=== PATIENT | female | born 1955 | race Caucasian/White ===

== ENCOUNTER → 2021-08-13 00:05 | Outpatient (CLI) | payer MEDICARE, SELFPAY ==
[2021-08-13 14:50] LABS: SARS-CoV-2 RNA PCR Negative
== END ==
PROVIDERS: PCP Family Medicine; Visit Provider Internal Medicine Gastroenterology
DX: Z01.812 Encounter for preprocedural laboratory examination (principal); Z20.822 Contact with and (suspected) exposure to COVID-19
CPT/HCPCS: C9803; U0003; U0005

== ENCOUNTER 2021-08-16 01:18 | Day surgery (SDC) | payer MEDICARE, SELFPAY ==
[2021-08-03 12:08] VITALS: BMI 26.5
[2021-08-16 08:46] VITALS: BP 149/72; PULSE 65; RESP 18; TEMP 36; O2SAT 100; BMI 26.4
[2021-08-16] MEDS: LACTATED RINGERS 1,000 ML 150 ML IV CONT (08:57)
--- NOTE | 2021-08-16 09:29 | WPDGICN ---
Assessment and Plan Assessment and plan (1) Heme positive stool: Code(s): R19.5 - Other fecal abnormalities Status: Acute Assessment and Plan: Patient with Hemoccult-positive stools. Plan is for surveillance colonoscopy. Further recommendations will be given after colonoscopy GI Consult Note Consult date/time: 08/16/21 09:29 HPI: Mami Hutson is a 66 year old female Presents for screening colonoscopy. Patient recently found to have occult blood in stool on several stool Hemoccult samples. She denies any obvious blood in her stools. Patient does have a history of colon polyps in the distant past. Most recent colonoscopy 4-5 years ago. She denies abdominal pain. She has had no family history of colon or rectal disease she presents today for neoplasia screening. [facility] Past Medical History Medical History Elevated lipids Hernia History of vaginal delivery x 2 Hypertension Stroke Surgical History Surgical History H/O colonoscopy 2017 H/O hernia repair History of breast biopsy History of tubal ligation Family History Family History Father Family history of diabetes mellitus in first degree relative Family history of coronary artery disease Family history of hypercholesterolemia Hypertension Cerebrovascular accident Mother Thyroid disorder Sibling Lymph node cancer Other Family history of malignant neoplasm of cervix Social History Social History Smoking packs per day: 1 Smoking cigarettes per day: 20.0 Years smoked: 50 Smoking pack-years: 50.00 Smoking status: Current every day smoker Tobacco type: cigarettes Second hand tobacco smoke exposure: No Alcohol intake: current Drinks per week: 14 Substance use: never Living arrangements: with family Spiritual care concerns: No Agree to blood products: Yes Meds Home Medications and Allergies Home Medications Medication Instructions Recorded Confirmed Type aspirin 81 mg tablet,delayed 162 mg PO DAILY tablet 06/27/21 08/03/21 History release nebivolol 10 mg tablet 10 mg PO DAILY #90 tablet 06/27/21 08/03/21 Rx simvastatin 40 mg tablet 40 mg PO DAILY #90 tablet 06/27/21 08/03/21 Rx triamterene 75 1 tablet PO DAILY 90 Days #90 06/27/21 08/03/21 Rx mg-hydrochlorothiazide 50 mg tablet tablet omeprazole 20 mg capsule,delayed 20 mg PO DAILY #90 cap 07/25/21 08/03/21 Rx release cholecalciferol (vitamin D3) 250 mcg PO DAILY 08/03/21 08/03/21 History [Vitamin D3] Allergies Allergy/AdvReac Type Severity Reaction Status Date / Time No Known Allergies Allergy Verified 08/16/21 08:45 Vital Signs Vital Signs - 24 hr 08/16/21 08:46 Temperature 96.8 F L Pulse Rate 65 Respiratory Rate 18 Blood Pressure 149/72 H Pulse Oximetry 100 Exam Narrative: Physical exam reveals patient to be alert. Vital signs stable. HEENT exam is unremarkable. Patient is anicteric. Lungs are clear to auscultation and percussion. Heart is without murmur or extra sounds. Abdominal exam bowel sounds present soft nontender with no organomegaly. Digital external rectal exam is normal.
--- NOTE | 2021-08-16 09:55 | WPDANESEPPF ---
Anes - Initial Pre Proc Eval Procedure: Operation Date: 08/16/21 10:00 Proposed Procedures p Colonoscopy - Los Poretr MD Date/Time: 08/16/21 09:55 Surgeon: Los Porter MD Pre Op Diagnosis: occult GI bled Patient Data Age: 66 Gender: F Height: 1.6 m Weight: 67.7 kg Last Vital Signs Temp 96.8 F L 08/16/21 08:46 Pulse 65 08/16/21 08:46 Resp 18 08/16/21 08:46 BP 149/72 H 08/16/21 08:46 Pulse Ox 100 08/16/21 08:46 Allergies Allergy/AdvReac Type Severity Reaction Status Date / Time No Known Allergies Allergy Verified 08/16/21 08:45 Home Medications Medication Instructions Recorded Confirmed Type aspirin 81 mg tablet,delayed 162 mg PO DAILY tablet 06/27/21 08/03/21 History release nebivolol 10 mg tablet 10 mg PO DAILY #90 tablet 06/27/21 08/03/21 Rx simvastatin 40 mg tablet 40 mg PO DAILY #90 tablet 06/27/21 08/03/21 Rx triamterene 75 1 tablet PO DAILY 90 Days #90 06/27/21 08/03/21 Rx mg-hydrochlorothiazide 50 mg tablet tablet omeprazole 20 mg capsule,delayed 20 mg PO DAILY #90 cap 07/25/21 08/03/21 Rx release cholecalciferol (vitamin D3) 250 mcg PO DAILY 08/03/21 08/03/21 History [Vitamin D3] Patient hx anesthesia problems: none Family hx anesthesia problems: none Results Review: All pre-operative results and documents have been reviewed as part of the pre-operative evaluation. [facility] Past Medical History Medical History Elevated lipids Hernia History of vaginal delivery x 2 Hypertension Stroke Surgical History Surgical History H/O colonoscopy 2017 H/O hernia repair History of breast biopsy History of tubal ligation Family History Family History Father Family history of diabetes mellitus in first degree relative Family history of coronary artery disease Family history of hypercholesterolemia Hypertension Cerebrovascular accident Mother Thyroid disorder Sibling Lymph node cancer Other Family history of malignant neoplasm of cervix Social History Social History Smoking packs per day: 1 Smoking cigarettes per day: 20.0 Years smoked: 50 Smoking pack-years: 50.00 Smoking status: Current every day smoker Tobacco type: cigarettes Second hand tobacco smoke exposure: No Alcohol intake: current Drinks per week: 14 Substance use: never Living arrangements: with family Spiritual care concerns: No Agree to blood products: Yes Anes - Eval Final PreProcedure Day of Procedure 08/16/21 09:55 Patient weight: normal Heart: regular rate and rhythm Lungs: clear to auscultation Airway: Mallampati scale class II Neurological: alert and oriented Last oral intake: >/= 8 hours ASA classification: III Emergent: no Anesthetic plan: proceed Anesthesia type and monitoring: general GIVS and standard monitoring Results Review: All pre-operative results and documents have been reviewed as part of the pre-operative evaluation. Informed Consent: The patient's anesthetic plan and its attendant risks and benefits were discussed with the patient/family/POA. Questions were solicited and answers provided to the satisfaction of the patient/family/POA.
[2021-08-16 10:41] VITALS: BP 126/67; PULSE 63; RESP 22; O2SAT 100
[2021-08-16 10:51] VITALS: BP 125/56; PULSE 65; RESP 15; O2SAT 100
[2021-08-16 11:01] VITALS: BP 133/50; PULSE 67; RESP 18; O2SAT 100
== END 2021-08-16 11:07 | disposition home or self-care (01) ==
PROVIDERS: PCP Family Medicine; Visit Provider Internal Medicine Gastroenterology
PROC: 0DJD8ZZ Inspection of Lower Intestinal Tract, Via Natural or Artificial Opening Endoscopic (ICD-10-PCS; CPT 45378; principal; 2021-08-16 10:00)
DX: R19.5 Other fecal abnormalities (principal); K63.5 Polyp of colon; K64.8 Other hemorrhoids; K57.30 Diverticulosis of large intestine without perforation or abscess without bleeding; I10 Essential (primary) hypertension; E78.5 Hyperlipidemia, unspecified; Z86.73 Personal history of transient ischemic attack (TIA), and cerebral infarction without residual deficits; F17.210 Nicotine dependence, cigarettes, uncomplicated; Z79.82 Long term (current) use of aspirin
CPT/HCPCS: 45385; 88305; J2704; J7120

== ENCOUNTER 2021-08-24 10:53 | Outpatient (CLI) | payer MEDICARE, SELFPAY ==
--- NOTE | ~2021-08-24 | US_ITS ---
EXAMINATION: US carotid duplex BI DATE: 08/24/2021 12:04 INDICATION: Left parietal lobe moreno radiata infarct. Left arm and hand numbness. TECHNIQUE: Grayscale, color Doppler, and pulsed Doppler images of the cervical carotid arteries were obtained. The degree of vessel stenosis is placed in one of the following categories: normal, <50%, 5 0-69%, >=70% but less than near-occlusion, near-occlusion, or total occlusion. Note that percent sten osis relative to normal distal artery lumen diameter is indirectly measured from velocity measurement s as described by Vinicio, et al. Radiology 2003; 229:340-346. COMPARISON: Brain MRI 11/25/2011 FINDINGS: RIGHT: The right common carotid artery (CCA) peak systolic velocity (PSV) is 73 cm/s. The right internal car otid artery (ICA) PSV is 88 cm/s. The right ICA end-diastolic velocity (EDV) is 32 cm/s. The right IC A/CCA PSV ratio is 1.2. Grayscale and color Doppler images yield an estimate of <50% diameter reducti on from plaque in the ICA. There is antegrade flow in the right vertebral artery. LEFT: The left CCA PSV is 87 cm/s. The left ICA PSV is 124 cm/s. The left ICA EDV is 24 cm/s. The left ICA/ CCA PSV ratio is 1.4. Grayscale and color Doppler images yield an estimate of <50% diameter reduction from plaque in the ICA. There is antegrade flow in the left vertebral artery. IMPRESSION: 1. <50% stenosis in the right internal carotid artery. 2. <50% stenosis in the left internal carotid artery. Reviewed, dictated and finalized at location B.
--- NOTE | ~2021-08-24 | XR_ITS ---
EXAMINATION:[id number] DATE: 08/24/2021 11:21 INDICATION: Left hand numbness TECHNIQUE: AP, lateral, lateral swimmers and odontoid views of the cervical spine are provided. COMPARISON: None FINDINGS: There are 2 mm of retrolisthesis of C5 on C6. There is 1 mm of anterolisthesis of C3 on C4. The odontoid is intact. No fracture is identified. The vertebral body heights are maintained. There is severe loss of intervertebral disc space height at C4-5 through C7-T1. There is moderate multileve l facet and uncovertebral joint osteoarthritis. Prevertebral soft tissues are normal. IMPRESSION: 1. Moderate to severe cervical spondylosis without acute findings. Reviewed, dictated and finalized at location A.
== END 2021-08-24 10:54 | disposition home or self-care (01) ==
PROVIDERS: PCP Family Medicine; Visit Provider Family Medicine
DX: R20.0 Anesthesia of skin (principal); M47.892 Other spondylosis, cervical region; I65.23 Occlusion and stenosis of bilateral carotid arteries
CPT/HCPCS: 72040; 93880

== ENCOUNTER 2021-09-05 12:33 | Outpatient (CLI) | payer MEDICARE, SELFPAY ==
--- NOTE | 2021-09-05 12:53 | ECHO_ITS ---
Patient Info Name: Mami Hutson Age: 66 years : 1955 Gender: Female Ht: 63 in Wt: 150 lbs BSA: 1.76 m2 HR: 54 bpm BP: 170 / 85 mmHg Technical Quality: Good Exam Date: 09/05/2021 1:24 PM Exam Location: [facility] Patient Status: Outpatient Admit Date: 09/05/2021 Staff Ordering Physician: Angie Adam DO Masonry Contractor: Laura Jernigan RDCS Attending Provider: Angie Adam DO Referring Physician: Jair MATTHEWS; Exam Type: CA echo doppler color flow Study Info Indications - LEFT HAND NUMBNESS Complete two-dimensional, color flow and Doppler transthoracic echocardiogram is performed. Summary 1. Complete two-dimensional, color flow and Doppler transthoracic echocardiogram is performed. 2. Left ventricular chamber dimension is normal. 3. Left ventricular systolic function is normal, estimated at 60-65%. 4. The left ventricular diastolic function is grade I diastolic dysfunction. 5. E/e' 8 is minimally elevated. 6. Left atrial chamber dimension is mildly enlarged. 7. There is trace mitral valve regurgitation. 8. There is mild tricuspid valve regurgitation. 9. No pulmonary hypertension, estimated pulmonary arterial systolic pressure is 31 mmHg. Left Ventricle E/e' 8 is minimally elevated. Left ventricular chamber dimension is normal. Left ventricular systolic function is normal, estimated at 60-65%. The left ventricular diastolic function is grade I diastolic dysfunction. Right Ventricle Right ventricular chamber dimension is normal. Right ventricular systolic function is normal. Left Atria Left atrial chamber dimension is mildly enlarged. Right Atria Right atrial chamber dimension is normal. Aortic Valve The aortic valve is trileaflet. There is no aortic valve stenosis. There is no aortic valve regurgitation. Pulmonic Valve There is no pulmonic regurgitation. Mitral Valve There is no mitral valve stenosis. There is trace mitral valve regurgitation. Tricuspid Valve There is mild tricuspid valve regurgitation. No pulmonary hypertension, estimated pulmonary arterial systolic pressure is 31 mmHg. Pericardium/Pleural There is no pericardial effusion. Inferior Vena Cava Normal inferior vena cava with >50% collapse upon inspiration consistent with normal right atrial pressure, 5 mmHg. Aorta The aortic root size at the sinus of Valsalva is normal. Left Ventricular Outflow Tract Name Value Normal LVOT 2D LVOT Diameter 2.0 cm LVOT Doppler LVOT Peak Gradient 4 mmHg LVOT Mean Gradient 2 mmHg LVOT VTI 25 cm LVOT VTI/AV VTI Ratio 0.8 LVOT Stroke Volume 77 ml LVOT CO 12.4 l/min LVOT CI 7.1 l/min/m2 Pulmonic Valve Name Value Normal PV Doppler
== END 2021-09-05 12:34 | disposition home or self-care (01) ==
PROVIDERS: PCP Family Medicine; Visit Provider Family Medicine
DX: I11.9 Hypertensive heart disease without heart failure (principal); I50.22 Chronic systolic (congestive) heart failure; I36.1 Nonrheumatic tricuspid (valve) insufficiency
CPT/HCPCS: 93306

== ENCOUNTER → 2021-09-07 13:07 | Outpatient (CLI) | payer MEDICARE, SELFPAY ==
--- NOTE | ~2021-09-07 | MR_ITS ---
EXAMINATION: MR brain/brain stem wo con DATE: 09/07/2021 13:42 INDICATION: Transient cerebral ischemic attack, unspecified. Left-sided numbness. Speech deficit. TECHNIQUE: Magnetic resonance imaging (MRI) of the brain and brainstem was performed without intraven ous contrast. COMPARISON: Brain MRI 11/25/2011 FINDINGS: There is an acute infarct in the inferolateral right frontal lobe. There are punctate acute infarcts in posterior right frontal lobe. There is no intracranial hemorrhage or abnormal mass lesio n. There are scattered areas of nonspecific increased T2-weighted signal intensity in the cerebral wh ite matter. The ventricles are normal in size. There are likely changes of ocular lens replacement vazquez rgeries. There are trace mastoid effusions. IMPRESSION: 1. Acute infarcts in right frontal lobe. 2. Mild nonspecific cerebral white matter disease, which likely represents chronic small vessel ische rom disease. Reviewed, dictated and finalized at location B. IMPRESSION: 1. Acute infarcts in right frontal lobe. 2. Mild nonspecific cerebral white matter disease, which likely represents chronic care nurse jennie small vessel ischemic disease.
== END ==
PROVIDERS: PCP Family Medicine; Visit Provider Family Medicine
DX: G45.9 Transient cerebral ischemic attack, unspecified (principal); R20.0 Anesthesia of skin; R93.0 Abnormal findings on diagnostic imaging of skull and head, not elsewhere classified
CPT/HCPCS: 70551

== ENCOUNTER 2021-09-07 14:01 | Outpatient (CLI) | payer MEDICARE, SELFPAY ==
--- NOTE | 2021-09-09 12:53 | WPDHOLTEREM ---
Holter/Event Monitor Holter/Event Monitor Date of procedure: 09/07/21 Holter/Event Procedure: 24 Hr Holter Monitor Indications: TIA Conclusion: 1. 24 hour holter monitor on 09/07/21. 2. Underlying rhythm in sinus rhythm. HR range 48-92 bpm; average HR 61 bpm. 3. There are 45 premature supraventricular complexes, 4 supraventricular couplets and 1 supraventricular triplet. No supraventricular tachycardia. 4. There are 165 premature ventricular complexes and 13 ventricular bigeminy. No ventricular tachycardia. 5. No sinoatrial or atrioventricular blocks. No significant pauses greater than 2 seconds. 6. Patient reports symptoms of hand and face numbness which demonstrates sinus rhythm at 76 bpm.
== END 2021-09-07 14:02 | disposition home or self-care (01) ==
PROVIDERS: PCP Family Medicine; Visit Provider Family Medicine
DX: G45.9 Transient cerebral ischemic attack, unspecified (principal); R00.2 Palpitations
CPT/HCPCS: 93225; 93226

== ENCOUNTER 2022-06-22 11:12 | Outpatient (CLI) | payer MEDICARE, SELFPAY ==
--- NOTE | ~2022-06-22 | MR_ITS ---
EXAMINATION: MR brain/brain stem wo/w con DATE: 06/22/2022 12:35 INDICATION: Stroke. TECHNIQUE: Magnetic resonance imaging (MRI) of the brain and brainstem was performed without and with 14 mL MultiHance intravenous contrast. COMPARISON: Brain MRI 09/07/2021 FINDINGS: There is a punctate acute infarct in the right frontal lobe. There are old infarcts in the right frontal lobe. There are scattered areas of nonspecific increased T2-weighted signal intensity i n the cerebral white matter. There is no intracranial hemorrhage or abnormal mass lesion. The ventric les are normal in size. There are small bilateral mastoid effusions. There is mild mucosal thickening in the ethmoid sinuses. There are likely changes of ocular lens replacement surgeries. IMPRESSION: 1. Punctate acute infarct in the right frontal lobe. 2. 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 3. Worsened mild nonspecific cerebral white matter disease, which likely represents chronic small ves elton ischemic disease. Reviewed, dictated and finalized at location A. ON TRADER IMPRESSION: 1. Punctate acute infarct in the right frontal lobe. 2. 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 3. Worsened mild nonspecific cerebral white matter disease, which likely repres ents chronic small vessel ischemic disease.
== END 2022-06-22 11:13 | disposition home or self-care (01) ==
PROVIDERS: PCP Family Medicine; Visit Provider Family Medicine
DX: I63.9 Cerebral infarction, unspecified (principal); R93.0 Abnormal findings on diagnostic imaging of skull and head, not elsewhere classified
CPT/HCPCS: 70553; A9577

== ENCOUNTER 2022-06-22 15:36 | Inpatient (IN) | payer MEDICARE, SELFPAY ==
[2022-06-22] VITALS (25 sets, daily range): BP systolic 122–158; BP diastolic 52–81; PULSE 56–72; RESP 12–28; TEMP 36.4–36.8; O2SAT 93–100; BMI 28.2
--- NOTE | ~2022-06-22 | CT_ITS ---
EXAMINATION: CTA brain carotid DATE: 06/22/2022 20:12 INDICATION: Facial numbness and slurred speech TECHNIQUE: Computed tomographic angiography (CTA) of the head was performed without and with 100 mL O mnipaque-350 intravenous contrast. CTA of the neck was performed with intravenous contrast. The dose- length product was 1688.04 mGy-cm. Maximum intensity projection and volume rendered 3D-reconstruction s were created by the technologist on a separate workstation. Automated exposure control and iterativ e reconstruction technique were employed. COMPARISON: MRI from today FINDINGS: HEAD CTA: There is no intracranial hemorrhage, acute infarction, or abnormal mass lesion. The punctat e right frontal lobe infarct described on today's MRI is not definitely identified (CT less sensitive than MRI for acute infarct). The ventricles are normal. There is no abnormal mass effect or midline shift. The cid-white matter differentiation is normal. The basal cisterns are patent. The orbits are normal. The paranasal sinuses, mastoids and calvarium are normal. There is no significant stenosis of the basilar artery or posterior cerebral arteries. There is no si gnificant stenosis of the anterior or middle cerebral arteries. There is severe stenosis of the right intracranial internal carotid artery. The anterior communicating artery and posterior communicating arteries are normal. There is no aneurysm. NECK CTA: The thyroid gland is unremarkable. The submandibular and parotid glands are symmetric. Ther e is no lymphadenopathy. There are no masses identified. The airway is unremarkable. There is moderat e to severe cervical spondylosis. Moderate emphysema is noted. The superior mediastinum is unremarkab le. There is 0% stenosis of the proximal right internal carotid artery relative to normal distal artery l umen diameter (NASCET criteria). There is 46% stenosis of the proximal left internal carotid artery r elative to normal distal artery lumen diameter. IMPRESSION: 1. Severe stenosis of the intracranial right internal carotid artery. 2. 0% stenosis of the proximal right internal carotid artery relative to normal distal artery lumen d iameter (NASCET criteria). 3. 46% stenosis of the proximal left internal carotid artery relative to normal distal artery lumen d iameter. Reviewed, dictated and finalized at location F. ING CONSULTANT IMPRESSION: 1. Severe stenosis of the intracranial right internal carotid artery. 2. 0% stenosis of the proximal right internal carotid artery relative to normal distal artery lumen diameter (NASCET criteria). 3. 46% stenosis of the proximal left internal carotid artery relative to normal distal artery lumen diameter.
--- NOTE | 2022-06-22 16:13 | ECG_ITS ---
Measurements Intervals [place] Rate: 65 P: 47 ME: 137 QRS: 33 QRSD: 86 T: 61 QT: 411 QTc: 429 Interpretive Statements SINUS RHYTHM BASELINE ARTIFACT- I, II, III, AVR, AVF, V4-V6 NORMAL ECG NO PREVIOUS ECG AVAILABLE FOR COMPARISON Electronically Signed On 06-23-2022 16:47:28 ROOFER APPRENTICE by Jack Smith D.O.
[2022-06-22 16:34] LABS: Basophils Absolute Auto 0.1 K/mm3 (0.0-0.1); Basophils Percent Auto 0.5 % (0.2-1.2); Eosinophils Absolute Auto 0.1 K/mm3 (0-0.3); Eosinophils Percent Auto 0.9 % (0-4.4); Hematocrit 40.5 % (37.0-47.0); Hemoglobin 13.5 g/dL (12.0-15.0); Immature Granulocyte Absolute 0.05 K/mm3 (0.00-0.031); Immature Granulocyte Percent A 0.4 % (0-0.5); Lymphocytes Absolute Auto 3.29 K/mm3 (0.9-3.2); Lymphocytes Percent Auto 25.5 % (18.3-44.2); Mean Corpuscular HGB Conc 33.3 g/dl (32-36); Mean Corpuscular Volume 92.9 fl (80-100); Mean Platelet Volume 9.3 fl (7.4-10.4); Monocytes Absolute Auto 0.9 K/mm3 (0.1-0.6); Monocytes Percent Auto 7.3 % (2.6-8.5); Neutrophils Absolute Auto 8.4 K/mm3 (1.3-6.7); Neutrophils Percent Auto 65.4 % (45.5-73.1); Platelet Count Result 374 k/mm3 (150-375); Red Blood Count 4.36 M/mm3 (4.2-5.4); Red Cell Distribution Width 13.2 % (11.5-14.5); White Blood Count 12.9 K/mm3 (4.5-10.0)
[2022-06-22 16:49] LABS: Alanine Aminotransferase 23 U/L (6-35); Albumin Level 4.8 g/dL (3.5-5.1); Alkaline Phosphatase 105 U/L (38-126); Anion Gap 11 mmol/L (8-16); Aspartate Amino Transferase 27 U/L (14-36); Bilirubin,Total 0.8 mg/dL (0.2-1.3); Blood Urea Nitrogen 21 mg/dL (7-17); Calcium 9.5 mg/dL (8.4-10.2); Carbon Dioxide 25 mmol/L (22-30); Chloride 99 mmol/L (98-107); Estimated CRCL calculation 46 ml/min; Estimated Glomerular Filt Rate 55; Glucose 105 mg/dL (65-110); Potassium 4.3 mmol/L (3.4-5.0); Sodium 135 mmol/L (137-145)
--- NOTE | 2022-06-22 17:45 | PC.NURSE ---
Patient reports that yesterday evening around 1800 she had an episode of left sided facial droop, slurred speech and left arm flaccid that lasted approx 10-20 minutes. She reports prior hx of TIAs but reports that symptoms are increasing in frequency over the past several weeks.
--- NOTE | 2022-06-22 19:08 | ED.NEUROSD ---
HPI - Neuro Symptoms/Deficit General Chief Complaint: Neuro Symptoms/Deficit Stated Complaint: MRI showed stroke Time Seen by Provider: 06/22/22 18:45 Source: patient and family Mode of arrival: ambulatory Limitations: no limitations History of Present Illness HPI Narrative: Patient is a 67 yo female with a history of TIA, HTN, HLD, acid reflux, presenting to the ER for evaluation of left arm numbness that started yesterday around 6 pm. Patient reports symptoms lasted for 20 minutes and then resolved. Pt denies associated facial droop, difficulty with speech or swallowing, headache pain or vision changes. No fall or syncope. Patient states she has had these intermittently for the past year and was initiated on two baby aspirin and plavix daily. Patient has seen Dr. Moreno in the past. This morning, patient went to her primary care physician and did tell him the symptoms she was experiencing so he ordered a stat brain MRI. He then called her this afternoon and told her to come the to the emergency department. Patient states that she does not know the results of the MRI. She denies any current numbness or weakness. No difficulty with ambulation. Related Data Home Medications Medication Instructions Recorded Confirmed aspirin 81 mg tablet,delayed 162 mg PO DAILY 06/27/21 12/20/21 release (Adult Aspirin Regimen) omeprazole 20 mg capsule,delayed 20 mg PO DAILY 12/20/21 12/20/21 release Allergies Allergy/AdvReac Type Severity Reaction Status Date / Time No Known Allergies Allergy Verified 06/22/22 09:56 Review of Systems Review of Systems: CONSTITUTIONAL: Denies fever, chills, or sweats. EYES: Denies visual changes, redness, or discharge. ENT: Denies rhinorrhea, congestion, sore throat, or otalgia. CARDIOVASCULAR: Denies chest pain, palpitations, or edema. RESPIRATORY: Denies cough or dyspnea. GASTROINTESTINAL: Denies abdominal pain, nausea, vomiting, or diarrhea. GENITOURINARY: Denies dysuria or hematuria. SKIN: Denies rash or itching. MUSCULOSKELETAL: Denies back pain, joint pain, or myalgia. NEUROLOGIC: Denies headache, numbness, or weakness. [facility] Past Medical History Medical History Elevated lipids Hernia History of vaginal delivery x 2 Hypertension Stroke TIA (transient ischemic attack) Surgical History Surgical History H/O cataract removal with insertion of prosthetic lens H/O colonoscopy 2017, 08/16/2021-rpt 5 years H/O hernia repair History of breast biopsy History of tubal ligation Family History Family History Father Family history of diabetes mellitus in first degree relative Family history of coronary artery disease Family history of hypercholesterolemia Hypertension Cerebrovascular accident Mother Thyroid disorder Sibling Lymph node cancer Other Family history of malignant neoplasm of cervix Social History Social History Smoking packs per day: 1 Smoking cigarettes per day: 20.0 Years smoked: 50 Smoking pack-years: 50.00 Smoking status: Current every day smoker Tobacco type: cigarettes Second hand tobacco smoke exposure: No Alcohol intake: current Drinks per week: 14 Substance use: never Lack of Transportation: No Lack of Food: Never True Current Housing: I Have Housing Concerned About Future Housing: No Difficulty Paying Gas/Electric Bills: No Difficulty Paying for Meds: No Currently Unemployed: No Education: High School Diploma/GED Difficulty w/ Childcare or Family Care: No Living arrangements: with family Occupation/Education: retired Spiritual care concerns: No Agree to blood products: Yes Exam Narrative: GENERAL: Awake, alert, conversant HEAD: Normocephalic, atraumatic. EYES: PERRLA and EOMI. E
--- NOTE | 2022-06-22 20:00 | PC.NURSE ---
Patient off unit to CT.
[2022-06-22 20:11] LABS: Cholesterol 189 mg/dL (0-200); HDL Direct 66 mg/dL; Triglycerides 135 mg/dL (<150)
[2022-06-22 20:21] LABS: Hemoglobin A1C 5.7 % (<5.7)
[2022-06-22 20:22] LABS: LDL Cholesterol Direct 74 mg/dL
--- NOTE | 2022-06-22 21:04 | PM.IMHP ---
H&P: HPI History of Present Illness Date/Time: 06/22/22 21:04 Chief Complaint: 57 years old female with past medical history of TIA hyperlipidemia hypertension presented to the hospital with numbness on the left side upper lower extremity started yesterday at 6:00 p.m. denies any weakness lasted for 20 minutes significantly improved patient was on aspirin and Plavix at the ER CT scan of the head was done MRI of the brain was done shows acute punctate stroke of left frontal lobe neurology recommended CTA eco continue aspirin Plavix statin admitted to the hospital for further evaluation and treatment permissive hypertension Review of Systems Review of Systems: Twelve system review was done negative except [facility] Past Medical History Medical History Elevated lipids Hernia History of vaginal delivery x 2 Hypertension Stroke TIA (transient ischemic attack) Surgical History Surgical History H/O cataract removal with insertion of prosthetic lens H/O colonoscopy 2017, 08/16/2021-rpt 5 years H/O hernia repair History of breast biopsy History of tubal ligation Family History Family History Father Family history of diabetes mellitus in first degree relative Family history of coronary artery disease Family history of hypercholesterolemia Hypertension Cerebrovascular accident Mother Thyroid disorder Sibling Lymph node cancer Other Family history of malignant neoplasm of cervix Social History Social History Smoking packs per day: 1 Smoking cigarettes per day: 20.0 Years smoked: 50 Smoking pack-years: 50.00 Smoking status: Current every day smoker Tobacco type: cigarettes Second hand tobacco smoke exposure: No Alcohol intake: current Drinks per week: 14 Substance use: never Lack of Transportation: No Lack of Food: Never True Current Housing: I Have Housing Concerned About Future Housing: No Difficulty Paying Gas/Electric Bills: No Difficulty Paying for Meds: No Currently Unemployed: No Education: High School Diploma/GED Difficulty w/ Childcare or Family Care: No Living arrangements: with family Occupation/Education: retired Spiritual care concerns: No Agree to blood products: Yes Meds Home Medications and Allergies Home Medications Medication Instructions Recorded Confirmed Type aspirin 81 mg tablet,delayed 162 mg PO DAILY 06/27/21 12/20/21 History release (Adult Aspirin Regimen) clopidogrel 75 mg tablet (Plavix) 75 mg PO DAILY #90 tabs 09/07/21 12/20/21 Rx omeprazole 20 mg capsule,delayed 20 mg PO DAILY 12/20/21 12/20/21 History release atorvastatin 40 mg tablet (Lipitor) 40 mg PO DAILY #90 tabs 03/17/22 Rx pantoprazole 40 mg tablet,delayed 40 mg PO QAM #90 tabs 03/30/22 Rx release lisinopril 10 mg tablet See Rx Instructions .Route 04/05/22 Rx .COMPLEX #90 tabs nebivolol 10 mg tablet See Rx Instructions .Route 06/02/22 Rx .COMPLEX #90 tabs triamterene 75 0.5 tablet PO DAILY #90 tabs 06/02/22 Rx mg-hydrochlorothiazide 50 mg tablet Allergies Allergy/AdvReac Type Severity Reaction Status Date / Time No Known Allergies Allergy Verified 06/22/22 09:56 Vital Signs Vital Signs - 24 hr 06/22/22 16:06 06/22/22 17:50 06/22/22 17:51 Temperature 98.2 F Pulse Rate 71 63 59 L Respiratory Rate 16 19 16 Blood Pressure 145/67 H 145/57 H Pulse Oximetry 100 Oxygen Delivery Room Air 06/22/22 18:09 06/22/22 18:15 06/22/22 18:31 Temperature Pulse Rate 57 L 59 L 56 L Respiratory Rate 15 17 17 Blood Pressure 122/59 L Pulse Oximetry Oxygen Delivery 06/22/22 18:32 06/22/22 18:45 06/22/22 18:46 Temperature Pulse Rate 56 L 56 L 57 L Respiratory Rate 15 18 28 H Blood Pressure
--- NOTE | 2022-06-22 21:48 | ADMGEN ---
This patient, Mami Hutson, was admitted to 3 [facility] Surg Room 307-02. Patient/family oriented to hospital policies and general routines including ID bracelet, bed and alarms, visiting hours, pain management, procedures, bathroom and other care routines, personal items, smoking policy, room service/diet, and visiting hours. Information on how to activate the Rapid Response Team has been discussed. Patient/Family are encouraged to report perceived risks to care and to ask questions if they do not understand what they are told or what they should do.
[2022-06-22 21:53] LABS: Troponin I < 0.012 ng/mL (0.000-0.034)
[2022-06-22 22:19] LABS: Cholesterol 182 mg/dL (0-200); HDL Direct 64 mg/dL; Triglycerides 138 mg/dL (<150)
[2022-06-22] MEDS: SODIUM CHLORIDE 0.9% IV 1,000 ML 100 ML IV CONT (22:23)
[2022-06-22 22:30] LABS: LDL Cholesterol Direct 73 mg/dL
[2022-06-23] VITALS: PULSE 53
--- NOTE | 2022-06-23 | ECHO_ITS ---
Patient Info Name: Mami Hutson Age: 67 years : 1955 Gender: Female Ht: 63 in Wt: 159 lbs BSA: 1.81 m2 HR: 68 bpm BP: 111 / 95 mmHg Technical Quality: Good Exam Date: 06/23/2022 11:25 AM Exam Location: [facility] Pulmonary Exam Room: [facility] Patient Status: Inpatient Admit Date: 06/23/2022 Staff Ordering Physician: Benji Chappell Bioinformatics Programmer: Laura Jernigan RDCS Attending Provider: Ulises Duarte M.A., MD Referring Physician: Ta GONZÁLES; Exam Type: CA echo doppler w bubble study Study Info Indications - NEW ACUTE STROKE Complete two-dimensional, color flow and Doppler transthoracic echocardiogram is performed with agitated saline. Contrast/Agitated Saline Contrast/Ag. Saline: Agitated Saline Amount: 20.00 ml Existing IV Access: Yes Summary 1. Left ventricular chamber dimension is normal. 2. Left ventricular systolic function is normal, estimated at 60-65%. 3. The left ventricular diastolic function is grade II diastolic dysfunction. 4. E/e' 9 is minimally elevated. 5. There is mild mitral valve regurgitation. 6. There is mild tricuspid valve regurgitation. 7. No pulmonary hypertension, estimated pulmonary arterial systolic pressure is 33 mmHg. Left Ventricle E/e' 9 is minimally elevated. Left ventricular chamber dimension is normal. Left ventricular systolic function is normal, estimated at 60-65%. The left ventricular diastolic function is grade II diastolic dysfunction. Right Ventricle Right ventricular chamber dimension is normal. Right ventricular systolic function is normal. Left Atria Left atrial chamber dimension is normal. Right Atria Right atrial chamber dimension is normal. Atrial Septum Agitated saline injection with and without valsalva maneuver opacified right side cardiac chambers without shunt to left side cardiac chambers. Intact interatrial septum visualized by 2D and agitated saline imaging. Aortic Valve The aortic valve is trileaflet. There is no aortic valve stenosis. There is no aortic valve regurgitation. Pulmonic Valve There is no pulmonic regurgitation. Mitral Valve There is no mitral valve stenosis. There is mild mitral valve regurgitation. Tricuspid Valve There is mild tricuspid valve regurgitation. No pulmonary hypertension, estimated pulmonary arterial systolic pressure is 33 mmHg. Pericardium/Pleural There is no pericardial effusion. Inferior Vena Cava Normal inferior vena cava with >50% collapse upon inspiration consistent with normal right atrial pressure, 5 mmHg. Aorta The aortic root size at the sinus of Valsalva is normal. Left Ventricular Outflow Tract Name Value Normal LVOT 2D LVOT Diameter 2.0 cm LVOT Doppler LVOT Peak Gradient 4 mmHg LVOT Mean Gradient 2 mmHg LVOT VTI 22 cm LVOT VTI/AV VTI Ratio 0.8 LVOT Stroke Volume 66 ml LVOT CO 11.7 l/min LVO
[2022-06-23 04:00] VITALS: PULSE 54
[2022-06-23 06:00] VITALS: BP 111/95; PULSE 59; RESP 14; TEMP 36.1; O2SAT 96
[2022-06-23 06:25] LABS: Basophils Absolute Auto 0.1 K/mm3 (0.0-0.1); Basophils Percent Auto 0.7 % (0.2-1.2); Eosinophils Absolute Auto 0.2 K/mm3 (0-0.3); Eosinophils Percent Auto 2.5 % (0-4.4); Hematocrit 38.6 % (37.0-47.0); Hemoglobin 12.5 g/dL (12.0-15.0); Immature Granulocyte Absolute 0.03 K/mm3 (0.00-0.031); Immature Granulocyte Percent A 0.3 % (0-0.5); Lymphocytes Absolute Auto 2.85 K/mm3 (0.9-3.2); Lymphocytes Percent Auto 32.1 % (18.3-44.2); Mean Corpuscular HGB Conc 32.4 g/dl (32-36); Mean Corpuscular Volume 92.8 fl (80-100); Mean Platelet Volume 9.3 fl (7.4-10.4); Monocytes Absolute Auto 0.9 K/mm3 (0.1-0.6); Monocytes Percent Auto 9.6 % (2.6-8.5); Neutrophils Absolute Auto 4.9 K/mm3 (1.3-6.7); Neutrophils Percent Auto 54.8 % (45.5-73.1); Platelet Count Result 341 k/mm3 (150-375); Red Blood Count 4.16 M/mm3 (4.2-5.4); Red Cell Distribution Width 13.3 % (11.5-14.5); White Blood Count 8.9 K/mm3 (4.5-10.0)
[2022-06-23 06:28] LABS: Alanine Aminotransferase 19 U/L (6-35); Albumin Level 4.2 g/dL (3.5-5.1); Alkaline Phosphatase 91 U/L (38-126); Anion Gap 7 mmol/L (8-16); Aspartate Amino Transferase 23 U/L (14-36); Bilirubin,Total 0.7 mg/dL (0.2-1.3); Blood Urea Nitrogen 17 mg/dL (7-17); Carbon Dioxide 27 mmol/L (22-30); Chloride 101 mmol/L (98-107); Estimated CRCL calculation 51 ml/min; Estimated Glomerular Filt Rate > 60; Glucose 97 mg/dL (65-110); Potassium 3.9 mmol/L (3.4-5.0); Sodium 135 mmol/L (137-145)
[2022-06-23 08:02] VITALS: PULSE 53
[2022-06-23 08:13] VITALS: PULSE 62
[2022-06-23] MEDS: NEBIVOLOL HCL 5 MG TABLET 10 MG BY MOUTH (08:13)
[2022-06-23] MEDS: ASPIRIN 81 MG ENTERIC TABLET 162 MG PO (08:13)
[2022-06-23] MEDS: CLOPIDOGREL BISULFATE 75 MG TABLET PO (08:13)
[2022-06-23] MEDS: ATORVASTATIN 40 MG TABLET PO (08:13)
[2022-06-23] MEDS: PANTOPRAZOLE 40 MG TABLET PO (08:14)
[2022-06-23] MEDS: FAMOTIDINE 20 MG TABLET PO (08:14)
[2022-06-23] MEDS: ASPIRIN 81 MG CHEWABLE TABLET PO (08:14)
--- NOTE | 2022-06-23 08:39 | PM.IMPN ---
Progress Note: A&P Assessment and Plan (1) Acute cerebral infarction: Code(s): I63.9 - Cerebral infarction, unspecified Status: Acute Assessment and Plan: Brain MRI punctate acute infarct in the right frontal lobe, old infarcts nt he right frontal lobe, white vessel disease Neurology consult CTA head of neck 0% of the right internal carotid artery, and 46% stenosis of the left internal carotid artery Resume aspirin, Plavix, and statin Echo with bubble ordered Lipid panel stable triglycerides 138, cholesterol 182, LDL 73, HDL 64 (2) Essential (primary) hypertension: Code(s): I10 - Essential (primary) hypertension Status: Acute Assessment and Plan: Current BP 111/95 Continue home nebivolol Hold lisinopril, triamterene-HCTZ Permissive hypertension goal of blood pressure for the next 24 hours less than 180/110 Stable (3) Mixed hyperlipidemia: Code(s): E78.2 - Mixed hyperlipidemia Status: Acute Assessment and Plan: Resume statin Lipid panel stable Continue current dose Time Spent With Patient Time: 52 minutes Time with patient: Greater than 35 minutes Subjective Date/time seen: 06/23/22 08:39 Interval history: 06/23/22 06/22/22? 21:04 57 years old female with past medical history of TIA hyperlipidemia hypertension presented to the hospital with numbness on the left side upper lower extremity started yesterday at 6:00 p.m. denies any weakness lasted for 20 minutes significantly improved patient was on aspirin and Plavix at the ER CT scan of the head was done MRI of the brain was done shows acute punctate stroke of left frontal lobe neurology recommended CTA eco continue aspirin Plavix statin admitted to the hospital for further evaluation and treatment permissive hypertension Review of Systems Review of Systems: All systems reviewed & are unremarkable except as noted in HPI and below Exam Narrative: General: well-nourished, well-appearing 67-year-old female, sitting up in bed, comfortable, NARD Neuro: awake, alert and oriented x4, speech clear, no focal neuro deficits noted HEENMT: normocephalic, atraumatic, EOMI, sclerae anicteric, moist oral mucosa Respiratory: Clear to auscultation bilaterally without crackles, rhonchi or wheezes, nonlabored breathing Cardio: regular rate, regular rhythm with S1-S2 Abdomen: nondistended, normoactive bowel sounds, soft, nontender to palpation Extremities: no edema, erythema, or tenderness to palpation, DP pulses 2+ bilaterally Skin: no rashes or lesions, warm and dry Psych: appropriate mood and affect, judgment and insight intact Objective Data Vital Signs Vital Signs: Vital Signs - 24 hr 06/22/22 16:06 06/22/22 17:50 06/22/22 17:51 Temperature 98.2 F Pulse Rate 71 63 59 L Respiratory Rate 16 19 16 Blood Pressure 145/67 H 145/57 H Pulse Oximetry 100 Oxygen Delivery Room Air 06/22/22 18:09 06/22/22 18:15 06/22/22 18:31 Temperature Pulse Rate 57 L 59 L 56 L Respiratory Rate 15 17 17 Blood Pressure 122/59 L Pulse Oximetry Oxygen Delivery 06/22/22 18:32 06/22/22 18:45 06/22/22 18:46 Temperature Pulse Rate 56 L 56 L 57 L Respiratory Rate 15 18 28 H Blood Pressure 138/57 L Pulse Oximetry Oxygen Delivery 06/22/22 19:14 06/22/22 19:15 06/22/22 19:16 Temperature Pulse Rate 63 58 L 68 Respiratory Rate 17 16 15 Blood Pressure 145/53 H Pulse Oximetry Oxygen Delivery 06/22/22 19:23 06/22/22 19:31 06/22/22 19:32 Temperature Pulse Rate 59 L 70 60 Respiratory Rate 16 19 14 Blood Pressure 158/68 H Pulse Oximetry Oxygen Delivery 06/22/22 19:45 06/22/22 20:10 06/22/22 20:11 Temperature Pulse Rate 60 68 65 Respiratory Rate 20 19 14 Blood Pressure 136/52 L Pulse Oximetry Oxygen Delivery 06/22/22 20:13 06/22/22 20:15 06/22/22 20:16 Temperature Pulse Rate
--- NOTE | 2022-06-23 09:02 | WPDNEURCNPN ---
Assessment and Plan Assessment and plan (1) Acute cerebral infarction: Code(s): I63.9 - Cerebral infarction, unspecified Status: Acute (2) Numbness of left hand: Code(s): R20.0 - Anesthesia of skin Status: Acute (3) Left facial numbness: Code(s): R20.0 - Anesthesia of skin Status: Acute (4) Essential (primary) hypertension: Code(s): I10 - Essential (primary) hypertension Status: Acute (5) Mixed hyperlipidemia: Code(s): E78.2 - Mixed hyperlipidemia Status: Acute (6) Tobacco use disorder: Code(s): F17.200 - Nicotine dependence, unspecified, uncomplicated Status: Acute Plan Mami Htuson is a 67 year old female with a history of HTN, HLD, prior stroke and TIA presenting due to concerns for left arm numbness. Found to have right frontal stroke, likely due to large vessel disease (severe intracranial R ICA stenosis). Patient is already on DAPT. - Continue Aspirin and Plavix - Increase Lipitor to 80mg daily - Discussed importance of smoking cessation - Surface echo is pending Consult date: 06/23/22 Reason for consult: Acute stroke HPI: Mami Hutson is a 67 year old female with a history of HTN, HLD, prior stroke and TIA presenting due to concerns for left arm numbness. Patient started developing symptoms around 6pm on 06/21. She had left arm numbness that lasted about 20 seconds and then self-resolved. She had no other focal symptoms such as speech/vision change or focal weakness. Patient does take aspirin and Plavix daily. She was following with Dr. Moreno for her history of stroke. Patient presented on 06/22 to her PCP office due to the concerns for LUE numbness and an MRI brain was ordered which showed punctate acute infarct in the right frontal lobe. CTA brain and carotid showed severe stenosis of the intracranial right internal carotid artery and 46% stenosis of the proximal left internal carotid artery. In addition to aspirin and Plavix, she also takes Lipitor 40mg daily. Her LDL from this admission is 73. Patient reports feeling well today. She has intermittent left face and left arm numbness but no weakness. She smokes 1/2 to 1 ppd. She had COVID in April and had discontinued her aspirin for some time, but restarted it a few weeks ago. Review of Systems Constitutional: Constitutional: Reports no additional constitutional complaints Eyes: Eyes: Reports no additional eye complaints ENT: Reports system reviewed and no additional complaints, except as documented Cardiovascular: Cardiovascular: Reports no additional cardiovascular complaints Respiratory: Respiratory: Reports no additional respiratory complaints Gastrointestinal: Gastrointestinal: Reports no additional gastrointestinal complaints Genitourinary: Genitourinary: Reports no additional female genitourinary complaints Musculoskeletal: Musculoskeletal: Reports arthralgias Integumentary/Breasts: Skin/Breast: Reports system reviewed and no additional complaints, except as docu Neurologic: Reports as per HPI Psychiatric: Psychiatric: Reports no additional psychiatric complaints PMFSH Past Medical History Medical History Elevated lipids Hernia History of vaginal delivery x 2 Hypertension Stroke TIA (transient ischemic attack) Surgical History Surgical History H/O cataract removal with insertion of prosthetic lens H/O colonoscopy 2017, 08/16/2021-rpt 5 years H/O hernia repair History of breast biopsy History of tubal ligation Family History Family History Father Family history of diabetes mellitus in first degree relative Family history of coronary artery disease Family history of hypercholesterolemia Hypertension Cerebrovascular accident Mother Thyroid disorder Sibling Lymph node cancer Other Fa
[2022-06-23] MEDS: ENOXAPARIN 40 MG/0.4 ML SYRINGE SUB-Q (09:42)
--- NOTE | 2022-06-23 10:45 | PM.DS ---
DS: Admitting Diagnosis Discharge Date 06/23/22 1045 Admitting Diagnosis Acute stroke DS: Discharge Diagnosis Discharge Diagnosis (1) Acute cerebral infarction: Code(s): I63.9 - Cerebral infarction, unspecified Status: Acute Assessment and Plan: Brain MRI punctate acute infarct in the right frontal lobe, old infarcts nt he right frontal lobe, white vessel disease Neurology consult CTA head of neck 0% of the right internal carotid artery, and 46% stenosis of the left internal carotid artery Resume aspirin, Plavix, and statin Echo with bubble pending Lipid panel stable triglycerides 138, cholesterol 182, LDL 73, HDL 64 Consider putting patient on Xarelto (2) Essential (primary) hypertension: Code(s): I10 - Essential (primary) hypertension Status: Acute Assessment and Plan: Current BP 111/95 Continue home nebivolol Hold lisinopril, triamterene-HCTZ Permissive hypertension goal of blood pressure for the next 24 hours less than 180/110 Stable (3) Mixed hyperlipidemia: Code(s): E78.2 - Mixed hyperlipidemia Status: Acute Assessment and Plan: Resume statin Lipid panel stable Continue current dose DS: Summary Hospital Course Hospital Course: patient is a 51-year-old female with a past medical history of TIA, stroke, hyperlipidemia, hypertension, paresthesias who presented the ED with complaints of numbness on the left side of her upper extremity. Last known normal was at 6:00 p.m. on 07-13. CT of the head was done and MRI of the brain did show an acute punctate stroke in the left frontal lobe CTA was done and showed 46% stenosis of the left carotid artery. Echo is being performed with bubble study, showed an EF of 60 65% with grade 2 diastolic dysfunction and no shunt from right to left within the septum. Patient stated that she has been on aspirin and Plavix at home. She did state that she had COVID about 2 weeks ago. Lipid panel was performed and did not show any indication for medication adjustments at this time. Patient did state that she has feels fine however she does state that she has been having these numbness and tingling paresthesias over the last couple of weeks that her last about 20 minutes at a time. Patient currently states she is back to her baseline she does not have any further paresthesias and feels great . She is wanting to go home if possible. Spoke with neurology ok with DC if all test come back with out abnormalities. She will need to continue her current therapy as she is currently taking her medications. She is stable per labs and vital signs and is stable for discharge at this time. Status at Discharge Functional status at discharge: independent ambulation Overall status at discharge: patient is progressing back to baseline Time Spent with Patient Time attestation: Total time spent providing and/or coordinating discharge services:56 minutes Time spent: Greater than 30 minutes Specific discharge activities: Diagnostic testing, chart review, developing a treatment plan, education, care coordination documentation, physical exam, result review Exam Narrative: General: well-nourished, well-appearing 67-year-old female, sitting up in bed, comfortable, NARD Neuro: awake, alert and oriented x4, speech clear, no focal neuro deficits noted HEENMT: normocephalic, atraumatic, EOMI, sclerae anicteric, moist oral mucosa Respiratory: Clear to auscultation bilaterally without crackles, rhonchi or wheezes, nonlabored breathing Cardio: regular rate, regular rhythm with S1-S2 Abdomen: nondistended, normoactive bowel sounds, soft, nontender to palpation Extremities: no edema, erythema, or tenderness to palpation, DP pulses 2+ bilaterally Skin: no rashes or lesions, warm and dry Psych: appropriate mood and affect, judgment and insight intact DS: Data Data Completed and Pending Labs on day of discharge
== END 2022-06-23 14:20 | disposition home or self-care (01) | DRG 66 ==
LOC: ANHED 20:39 → ANH3MEDSUR 21:16
PROVIDERS: Emergency Medicine; Admitting Provider Internal Medicine; Emergency Provider Emergency Medicine; PCP Family Medicine; Visit Provider Nurse Practitioner
DX: I63.59 Cerebral infarction due to unspecified occlusion or stenosis of other cerebral artery (principal); R20.0 Anesthesia of skin; I10 Essential (primary) hypertension; E78.5 Hyperlipidemia, unspecified; K21.9 Gastro-esophageal reflux disease without esophagitis; F17.210 Nicotine dependence, cigarettes, uncomplicated; Z86.16 Personal history of COVID-19; Z86.73 Personal history of transient ischemic attack (TIA), and cerebral infarction without residual deficits; Z79.82 Long term (current) use of aspirin; Z79.02 Long term (current) use of antithrombotics/antiplatelets
CPT/HCPCS: 36415; 70496; 70498; 70553; 80053; 80061; 83036; 84145; 84443; 84484; 85025; 85610; 93005; 93306; 96372; 96375; 97161; 99285; A9270; A9577; G0378; J1650; J7030; Q9967